=== PATIENT | female | born 1955 | race Caucasian/White ===

== ENCOUNTER 2022-10-05 13:15 | Emergency (ER) | payer OTHER, SELFPAY ==
[2022-10-05 13:36] VITALS: BP 187/100; PULSE 99; RESP 16; TEMP 36.4; O2SAT 97; BMI 30.2
--- NOTE | 2022-10-05 13:37 | ED_ITS ---
HPI - General Adult General Chief complaint: Back Pain/Injury <DEVORAH Mancia - Last Filed: 10/05/22 13:40> Stated complaint: pain L side hip <DEVORAH Mancia - Last Filed: 10/05/22 13:40> Time Seen by Provider: 10/05/22 15:13 <DEVORAH Mancia - Last Filed: 10/05/22 13:40> Source: patient and retail operations manager <DEVORAH Simons - Last Filed: 10/05/22 16:01> Mode of arrival: ambulatory <DEVORAH Simons Last Filed: 10/05/22 16:01> Limitations: language barrier <DEVORAH Simons Last Filed: 10/05/22 16:01> History of Present Illness HPI narrative: Patient is a 66 year old assigned female at with no reported medical history presenting to the emergency department today with left sided back pain that radiates down her left leg. Patient states that this pain in her back started last night as she was getting up from being on the toilet. Patient denies any numbness, tingling, dizziness, lightheadedness, abdominal pain, nausea, vomiting, fever, chills, blurry vision, double vision, loss of vision, chest pain, difficulty breathing, shortness of breath, night sweats, pain with urination, increased urinary frequency, increased urinary urgency, blood in her urine or stool, syncope or a near syncopal episode, recent trauma or falls, bowel incontinence, bladder incontinence, bowel retention, bladder retention, or any other complaints at this time. <DEVORAH Simons - Last Filed: 10/05/22 16:01> Onset (ago): day(s) (1) <DEVORAH Simons - Last Filed: 10/05/22 16:01> Location: back <DEVORAH Simons Last Filed: 10/05/22 16:01> Radiation: extremity and distal <DEVORAH Simons Last Filed: 10/05/22 16:01> Severity: mild <DEVORAH Simons Last Filed: 10/05/22 16:01> Severity scale (1-10): 3 <DEVORAH Simons Last Filed: 10/05/22 16:01> Quality: aching <DEVORAH Simons Last Filed: 10/05/22 16:01> Pain Consistency: intermittent <DEVORAH Simons Last Filed: 10/05/22 16:01> Relieving factors: none <DEVORAH Simons - Last Filed: 10/05/22 16:01> Exacerbating factors: none <DEVORAH Simons - Last Filed: 10/05/22 16:01> Associated symptoms: denies other symptoms <DEVORAH Simons Last Filed: 10/05/22 16:01> Treatments prior to arrival: none <DEVORAH Simons Last Filed: 10/05/22 16:01> Related Data Home medications: Previous Rx's Medication Instructions Recorded cyclobenzaprine 5 mg tablet 5 mg PO TID PRN back pain 7 days 10/05/22 #21 tabs naproxen 500 mg tablet 500 mg PO BID 7 days #14 tabs 10/05/22 prednisone 20 mg tablet 20 mg PO DAILY 7 days #7 tabs 10/05/22 <DEVORAH Mancia - Last Filed: 10/05/22 13:40> Allergies/adverse reactions: Allergies Allergy/AdvReac Type Severity Reaction Status Date / Time No Known Allergies Allergy Verified 10/05/22 13:41 <DEVORAH Mancia - Last Filed: 10/05/22 13:40> Review of Systems Constitutional: Constitutional: Reports no additional constitutional complaints, Denies chills, Denies fever(s) and Denies night sweats <DEVROAH Simons - Last Filed: 10/05/22 16:01> Eyes: Eyes: Reports no additional eye complaints, Denies blurry vision, Denies change in vision, Denies diplopia, Denies eye discharge, Denies loss of vision and Denies eye pain <DEVORAH Simons - Last Filed: 10/05/22 16:01> ENT: Denies dizziness <DEVORAH Simons - Last Filed: 10/05/22 16:01> Cardiovascular: Cardiovascular: Reports no additional cardiovascular complaints, Denies chest pain, Denies lightheadedness, Denies Loss of Consciousness and Denies dyspnea <DEVORAH Simons - Last Filed: 10/05/22 16:01> Respiratory: Respiratory: Reports no additional respiratory complaints and Denies dyspnea <DEVORAH Simons - Last Filed: 10/05/22 16:01> Gastrointestinal: Gastrointestinal: Reports no additional gastrointestinal complaints, Denies abdominal pain, Denies melena, Denies hematochezia, Denies change in bowel habits and Denies change in stool character <DEVORAH Garcia - Last Filed: 10/05/22 16:01> Genitourinary: Genitourinary: Denies hematuria, Denies urinary frequency, Denies dysuria, Denies urinary incontinence, Denies urinary hesitancy and Denies urinary urgency <DEVORAH Simons - Last Filed: 10/05/22 16:01> Musculoskeletal: Musculoskeletal: Reports no additional musculoskeletal complaints, Reports back pain, Denies numbness and Denies tingling <DEVORAH Simons - Last Filed: 10/05/22 16:01> Neurologic: Denies dizziness, Denies loss of vision, Denies numbness and Denies tingling <DEVORAH Simons - Last Filed: 10/05/22 16:01> Psychiatric: Psychiatric: Reports no additional psychiatric complaints <DEVORAH Simons - Last Filed: 10/05/22 16:01> Endocrine: Endocrine: Reports no additional endocrine complaints <DEVORAH Simons - Last Filed: 10/05/22 16:01> Hematologic/Lymphatic: Hematologic/Lymphatic: Reports no additional hematologic/lymphatic complaints <DEVORAH Simons - Last Filed: 10/05/22 16:01> Allergic/Immunologic: Allergic/Immunologic: Reports no additional allergic/immunologic complaints <DEVORAH Simons - Last Filed: 10/05/22 16:01> PMFSH Past Medical History Attestation statement: The following information was validated with the patient. <DEVORAH Simons - Last Filed: 10/05/22 16:01> Source: old records reviewed and nursing notes reviewed <DEVORAH Simons - Last Filed: 10/05/22 16:01> Social History Social History: Social History Advance Directives: No Advance Directives Information Provided: No <DEVORAH Mancia - Last Filed: 10/05/22 13:40> Physical Exam ED Vital Signs: Vital Signs - 24 hr 10/05/22 13:36 Temperature 97.6 F Pulse Rate 99 Respiratory Rate 16 Blood Pressure 187/100 H Pulse Oximetry 97 Oxygen Delivery Method Room Air BMI result Body Mass Index 30.2 <DEVORAH Mancia - Last Filed: 10/05/22 13:40> Vital Signs - 24 hr 10/05/22 13:36 Temperature 97.6 F Pulse Rate 99 Respiratory Rate 16 Blood Pressure 187/100 H Pulse Oximetry 97 Oxygen Delivery Method Room Air BMI result Body Mass Index 30.2 <DEVORAH Simons - Last Filed: 10/05/22 16:01> Const General: cooperative, no acute distress, alert and awake <DEVORAH Simons - Last Filed: 10/05/22 16:01> Nutritional Appearance: well nourished <DEVORAH Simons - Last Filed: 10/05/22 16:01> Orientation/consciousness: patient oriented x3 <DEVORAH Simons - Last Filed: 10/05/22 16:01> Limitations: no limitations <DEVORAH Simons Last Filed: 10/05/22 16:01> HENMT Head: Yes normal to inspection and Yes atraumatic <DEVORAH Simons - Last Filed: 10/05/22 16:01> Ears: hearing grossly normal bilaterally and external ears normal <DEVORAH Simons - Last Filed: 10/05/22 16:01> General nose exam: Normal external nose present, no nasal discharge noted and no epistaxis <DEVORAH Simons - Last Filed: 10/05/22 16:01> Face and sinus: Yes normal facial exam, No abrasion and No laceration <DEVORAH Simons - Last Filed: 10/05/22 16:01> Mouth: Normal oral and palatal mucosa present, no drooling and no muffled voice <DEVORAH Simons - Last Filed: 10/05/22 16:01> Eyes General: appearance normal, both eyes and all related structures <DEVORAH Simons Last Filed: 10/05/22 16:01> Periorbital: periorbital findings normal <Shama Alvarado [place] - Last Filed: 10/05/22 16:01> Eyelids: Yes eyelids normal <Shama Alvarado [place] - Last Filed: 10/05/22 16:01> Conjunctivae: conjunctivae normal <Shama Alvarado [place] - Last Filed: 10/05/22 16:01> Pupils: Equal, round and reactive pupils present <Shama Alvarado [place] - Last Filed: 10/05/22 16:01> EOM: EOMs intact bilaterally <Shama Alvarado [place] - Last Filed: 10/05/22 16:01> Neck Neck: Yes normal visual inspection, Yes full ROM and Yes no lymphadenopathy <Shama Alvarado [place] - Last Filed: 10/05/22 16:01> Chest Chest palpation & inspection: normal inspection of the chest <Shama Alvarado [place] - Last Filed: 10/05/22 16:01> Resp Effort & Inspection: normal respiratory effort and able to speak in complete sentences <Shama Mcdanielsmateus [place] - Last Filed: 10/05/22 16:01> Auscultation: clear to auscultation bilaterally <Shama Alvarado [place] - Last Filed: 10/05/22 16:01> Cardio Rate: regular rate <Shama Alvarado [place] - Last Filed: 10/05/22 16:01> Rhythm: regular rhythm <Shama Alvarado [place] - Last Filed: 10/05/22 16:01> GI Inspection: Yes normal to inspection <Shama Mcdanielsmateus [place] - Last Filed: 10/05/22 16:01> General: Yes no CVA tenderness <Shama Alvarado [place] - Last Filed: 10/05/22 16:01> Back/Spine/Pelvis Back: no CVA tenderness <Shama Mcdanielsmateus [place] - Last Filed: 10/05/22 16:01> Cervical Spine: normal cervical lordosis and cervical ROM normal <Shama Mcdanielsmateus [place] - Last Filed: 10/05/22 16:01> Thoracic/Lumbar Spine: thoracic and lumbar spine normal to inspection and thoraco-lumbar ROM normal <Shama Mcdanielsmateus [place] - Last Filed: 10/05/22 16:01> Neuro General: patient oriented x3 and moves all extremities <DEVORAH Simons - Last Filed: 10/05/22 16:01> Cranial nerves: Yes Equal, round and reactive pupils present <Shamacele McdanielsDEVORAH ignacio - Last Filed: 10/05/22 16:01> Cognition (Neuro): normal cognition <Shama McdanielsDEVORAH ignacio - Last Filed: 10/05/22 16:01> Motor exam (neuro): 5/5 motor strength present throughout <Shama AlvaradoDEVORAH ignacio - Last Filed: 10/05/22 16:01> Sensory Exam: Normal double simultaneous stimulation for sensation <Shamacele McdanielsDEVORAH ignacio - Last Filed: 10/05/22 16:01> Coordination: [id number]-on-eerl test normal <DEVORAH Simons - Last Filed: 10/05/22 16:01> Extrem General: Yes normal to inspection, Yes full ROM and Yes capillary refill normal <Shamacele McdanielsDEVORAH ignacio - Last Filed: 10/05/22 16:01> Psych Appearance: grossly normal <DEVORAH Simons - Last Filed: 10/05/22 16:01> Mental Status: mental status grossly normal <DEVORAH Siomns - Last Filed: 10/05/22 16:01> Affect: normal affect <DEVORAH Simons - Last Filed: 10/05/22 16:01> Attitude: cooperative <DEVORAH Simons - Last Filed: 10/05/22 16:01> Thought process: Normal thought process present <DEVORAH Simons - Last Filed: 10/05/22 16:01> Thought content: Normal thought content present <DEVORAH Simons - Last Filed: 10/05/22 16:01> Insight: Good insight present (Psych) <DEVORAH Simons - Last Filed: 10/05/22 16:01> Course Course Course Narrative: 13:37 - RME - 66 yo [place]ican speaking female presenting for evaluation of acute onset of left lower back pain that radiates into the buttock and down the leg. It started last night when she got up from the toilet in the middle of the night. No history of similar episodes. No urinary or bowel incontinence. <DEVORAH Mancia - Last Filed: 10/05/22 13:40> Medical Decision Making Medical Decision Making MDM Narrative: Patient is a 66 year old assigned female at with no reported medical history presenting to the emergency department today with left sided back pain that radiates down her left leg. Patient's physical exam was unremarkable. I discussed obtaining an x-ray of the patient's lumbar spine with the patient and she declined to have any imaging done. I explained the risks and benefits associated with getting imaging vs. not getting imaging and the patient verbalized understanding of all risks and benefits and still persisted on not getting any imaging done. I explained my physical exam findings to the patient. I answered all questions asked by the patient. Patient received IM Toradol, PO Prednisone, and PO Flexeril which she stated helped her symptoms significantly. I stressed the importance of the patient taking her medication as prescribed. I stressed the importance of the patient following up with her primary care provider. I stressed the importance of the patient returning to the emergency department immediately if her symptoms were to worsen or if she were to develop any dizziness, shortness of breath, difficulty breathing, chest pain, blurry vision, loss of vision, nausea, vomiting, abdominal pain, fever, chills, back pain, or any other complaints. Patient verbalized agreement and understanding with this treatment plan and discharge. <DEVORAH Simons - Last Filed: 10/05/22 16:01> Differential Diagnosis Differential Diagnoses: The differential diagnosis associated with the presentation includes <DEVORAH Simons - Last Filed: 10/05/22 16:01> low back pain, sciatica <DEVORAH Simons - Last Filed: 10/05/22 16:01> Tests considered The following testing was considered but not selected: Low back imaging - patient refused after being explained all risks and benefits of obtaining said imaging. <DEVORAH Simons - Last Filed: 10/05/22 16:01> Discharge Plan Discharge Clinical Impression: Sciatica <DEVORAH Mancia - Last Filed: 10/05/22 13:40> Patient Disposition: Home, Self-Care <DEVORAH Mancia Last Filed: 10/05/22 13:40> Instructions: Sciatica (ED) <DEVORAH Mancia - Last Filed: 10/05/22 13:40> Additional Instructions: Follow up with your primary care provider. Return to the emergency department immediately if your symptoms worsen or if you develop any dizziness, shortness of breath, difficulty breathing, chest pain, blurry vision, loss of vision, nausea, vomiting, abdominal pain, fever, chills, back pain, or any other complaints. Thom un seguimiento con reyes proveedor de atenci?n primaria. Regrese a la jayla de emergencias de inmediato si jason s?ntomas empeoran o si presenta mareos, dificultad para respirar, dolor de pecho, visi?n borrosa, p?rdida de la visi?n, n?useas, v?mitos, dolor abdominal, fiebre, escalofr?os, dolor de espalda o cualquier otras quejas. <DEVORAH Mancia - Last Filed: 10/05/22 13:40> Prescriptions: New prednisone 20 mg tablet 20 mg PO DAILY 7 Days Qty: 7 0RF naproxen 500 mg tablet 500 mg PO BID 7 Days Qty: 14 0RF cyclobenzaprine 5 mg tablet 5 mg PO TID PRN (Reason: back pain) 7 Days Qty: 21 0RF <DEVORAH Mancia - Last Filed: 10/05/22 13:40> Referrals: [facility] [Primary Care Provider] - <DEVORAH Mancia - Last Filed: 10/05/22 13:40> Print Language: Jamaican <DEVORAH Mancia - Last Filed: 10/05/22 13:40>
[2022-10-05] MEDS: predniSONE 20 MG TABLET PO (16:04)
[2022-10-05] MEDS: Cyclobenzaprine HCl 5 MG TABLET PO (16:04)
[2022-10-05] MEDS: Ketorolac Tromethamine 15 MG/ML VIAL IM (16:13)
== END 2022-10-05 16:18 | disposition home or self-care (01) ==
PROVIDERS: Emergency Provider Student in an Organized Health Care Education/Training Program
DX: M54.42 Lumbago with sciatica, left side (principal); M54.41 Lumbago with sciatica, right side; Z79.899 Other long term (current) drug therapy
CPT/HCPCS: 96372; 99283; 99284; J1885